=== PATIENT | female | born 1970 | race Caucasian/White ===

== ENCOUNTER 2018-05-03 23:34 | Inpatient (IN) | payer BC ==
[~2018-05-03] VITALS: Ht 167.6 cm; Wt 81.4 kg
[2018-05-04 00:03] LABS: BASOPHILS 0.2 % (0-2); HEMATOCRIT 42.4 % (36.0-48.0); HEMOGLOBIN 13.7 g/dL (12-16); IMMATURE GRANULOCYTES 0.3 % (0-5); LYMPHOCYTES 15.3 % (15-50); MCH 28.4 pg (26.0-34.0); MCHC 32.3 g/dL (31.0-37.0); MCV 87.8 fL (80.0-100.0); MEAN PLATELET VOLUME 9.1 fL (7.4-10.4); NEUTROPHILS 70.2 % (40-80); PLATELET COUNT 397 10x3/uL (130-400); RBC 4.83 10x6/uL (4.00-5.40); RDW 14.5 % (11.5-14.5); WBC 12.7 10x3/uL (4.8-10.8)
[2018-05-04 00:15] LABS: APTT 25.2 SECONDS (22.8-39.4)
[2018-05-04 00:16] LABS: INR 1.01 (0.85-1.17); PROTIME 12.8 SECONDS (11.6-15.0)
[2018-05-04 00:18] LABS: D-DIMER-QUANTITATIVE 0.33 ug/mLFEU (0.20-0.54)
[2018-05-04 00:36] LABS: ALBUMIN 3.7 g/dL (3.4-5.0); ALKALINE PHOSPHATASE 133 U/L (46-116); ALT (SGPT) 19 U/L (10-68); BILIRUBIN - TOTAL 0.52 mg/dL (0.2-1.3); CALC OSMOLALITY 275 mosm/kg (275-300); CALCIUM 8.4 mg/dL (8.5-10.1); CARBON DIOXIDE 21.7 mmol/L (21.0-32.0); CHLORIDE - SERUM 102 mmol/L (98-107); CREATININE - SERUM 0.8 mg/dL (0.6-1.3); GLUCOSE 143 mg/dL (74-106); POTASSIUM - SERUM 3.7 mmol/L (3.5-5.1); PROTEIN - SERUM 7.5 g/dL (6.4-8.2); SODIUM 138 mmol/L (136-145); UREA NITROGEN 8 mg/dL (7-18); eGFR NON AFRICAN AMERICAN 82 mL/min (90-120)
[2018-05-04 00:51] LABS: CKMB 0.3 U/L (0.0-3.6); CREATINE KINASE 45 UL (21-215); PRO BNP 58 pg/mL (0-125); TROPONIN-I < 0.017 ng/mL (0.000-0.060)
--- NOTE | 2018-05-04 01:06 | NUR ---
PT STATES "BREATING BETTER NOW"- OXYGEN IN PLACE AT 2L N/C. SPOUSE AT BEDSIDE. CALL LIGHT WITHIN REACH. WILL MONITOR.
[2018-05-04 03:22] VITALS: BP 161/92; BMI 28.9
--- NOTE | 2018-05-04 03:32 | NUR ---
REPORT CALLED TO THIS NURSE BY BRY ROMERO IN ER. ARRIVED TO FLOOR IN W/C WITH FAMILY AT SIDE. ADMITTED TO ROOM 2124. ALERT AND ORIENTED X4. UP AD MARK. GOOD HISTORIAN. DENIES ANY HOME MEDICATIONS AND STATES SHE'S BEEN HEALTHY ALL HER LIFE. O2@ 2 LITERS PER N/C IN PLACE. IV TO LEFT HAND SL.. DENIES ANY PAIN OR NEEDS AT THIS TIME. ORIENTED TO ROOM, CALL LIGHT AND MEAL TIMES.
[2018-05-04 03:55] VITALS: BP 161/92
--- NOTE | 2018-05-04 07:11 | NUR ---
ASSESSMENT DONE. DENIES NEEDS.
--- NOTE | 2018-05-04 07:59 | NUR ---
I have reviewed this patient and I concur with the Shift Assessment completed by the Licensed Practical Nurse today this shift.
[2018-05-04 09:00] VITALS: BP 125/89
[2018-05-04 10:28] VITALS: Ht 167.6 cm; Wt 81.4 kg
[2018-05-04 12:24] LABS: APPEARANCE CLEAR (CLEAR); BILIRUBIN NEGATIVE (NEGATIVE); COLOR YELLOW (YELLOW); GLUCOSE 1000 mg/dL (NEGATIVE); KETONE SMALL mg/dL (NEGATIVE); NITRITE NEGATIVE (NEGATIVE); PROTEIN NEGATIVE (NEGATIVE); UROBILINOGEN NORMAL (NORMAL)
[2018-05-04 12:37] LABS: UDS - AMPHET NEGATIVE QUAL (NEGATIVE); UDS - BARB NEGATIVE QUAL (NEGATIVE); UDS - BENZO NEGATIVE QUAL (NEGATIVE); UDS - COCAINE NEGATIVE QUAL (NEGATIVE); UDS - OPIATE NEGATIVE QUAL (NEGATIVE); UDS - PCP NEGATIVE QUAL (NEGATIVE); UDS - THC POSITIVE QUAL (NEGATIVE)
[2018-05-04 12:41] VITALS: BP 148/89
[2018-05-04 12:59] LABS: CKMB 0.5 U/L (0.0-3.6); CREATINE KINASE 41 UL (21-215); TROPONIN-I < 0.017 ng/mL (0.000-0.060)
[2018-05-04 16:25] VITALS: BP 144/85
--- NOTE | 2018-05-04 17:44 | NUR ---
WITHOUT CHANGES OR DISTRESS NOTED AT THIS TIME. DENIES NEEDS.
[2018-05-04 17:45] LABS: CKMB 0.5 U/L (0.0-3.6); CREATINE KINASE 39 UL (21-215)
[2018-05-04 17:47] LABS: TROPONIN-I < 0.017 ng/mL (0.000-0.060)
--- NOTE | 2018-05-04 20:02 | NUR ---
RECEIEVED UP IN BED WITH SIGNIFICANT OTHER AT BEDSIDE.T AND ORIENTED X4. DENIES ANY SOB AND DOES NOT HAVE O2 ON. SAT 96% ON ROOM AIR. AZITHROMYCIN STARTED TO LEFT HAND. TELEMETRY IN PLACE. DENIES ANY NEEDS AT THIS TIME.
[2018-05-04 20:26] VITALS: BP 159/93
[2018-05-04 22:49] LABS: CKMB 0.7 U/L (0.0-3.6); CREATINE KINASE 44 UL (21-215); TROPONIN-I < 0.017 ng/mL (0.000-0.060)
[2018-05-05 01:37] VITALS: BP 145/88
[2018-05-05 05:31] VITALS: BP 145/82
[2018-05-05 06:15] LABS: BASOPHILS 0.1 % (0-2); EOSINOPHILS 0.7 % (0-7); HEMATOCRIT 39.4 % (36.0-48.0); HEMOGLOBIN 12.7 g/dL (12-16); IMMATURE GRANULOCYTES 0.2 % (0-5); LYMPHOCYTES 16.7 % (15-50); MCH 28.3 pg (26.0-34.0); MCHC 32.2 g/dL (31.0-37.0); MCV 87.8 fL (80.0-100.0); MEAN PLATELET VOLUME 9.6 fL (7.4-10.4); NEUTROPHILS 74.3 % (40-80); PLATELET COUNT 382 10x3/uL (130-400); RBC 4.49 10x6/uL (4.00-5.40); RDW 15.1 % (11.5-14.5)
[2018-05-05 06:18] LABS: WBC 16.3 10x3/uL (4.8-10.8)
[2018-05-05 06:26] LABS: CALC OSMOLALITY 277 mosm/kg (275-300); CALCIUM 8.4 mg/dL (8.5-10.1); CARBON DIOXIDE 23.5 mmol/L (21.0-32.0); CHLORIDE - SERUM 105 mmol/L (98-107); CREATININE - SERUM 0.7 mg/dL (0.6-1.3); GLUCOSE 103 mg/dL (74-106); POTASSIUM - SERUM 3.7 mmol/L (3.5-5.1); SODIUM 140 mmol/L (136-145); UREA NITROGEN 9 mg/dL (7-18); eGFR NON AFRICAN AMERICAN > 90 mL/min (90-120)
--- NOTE | 2018-05-05 08:00 | NUR ---
WALKING IN HALLWAY. ALERT AND ORIENTED.LEFT HAND SL. TELEMERTY SHOWS SR. DENIES ANY NEEDS. FAMILY AT BEDSIDE.
[2018-05-05 08:23] VITALS: BP 113/60
[2018-05-05 11:52] VITALS: BP 148/107
--- NOTE | 2018-05-05 14:48 | NUR ---
UP IN BED. WANTS TO GO HOME. AWAITING PULLED MONITOR OFF AND STATES SHE DOES NOT WANT TO WEAR IT ANY MORE
[2018-05-05] MEDS ORDERED: FLORAJEN3 CAPS460 MG PO (16:52)
[2018-05-05] MEDS ORDERED: ZITHROMAX500 MG PO (16:52)
--- NOTE | 2018-05-05 16:57 | MORECARE ---
CASE MANAGEMENT DISCHARGE SUMMARY PATIENT: JAROD LECHUGA UNIT: [id number] ADM DATE: 05/04/18 AGE: 47 : 74 SEX: F ROOM/BED: D.6487 AUTHOR: EAMON COX PHYSICIAN: REFERRING PHYSICIAN: KHARI MORENO MD DATE OF SERVICE: 05/05/18 Discharge Plan Patient Name: JAROD LECHUGA Facility: [facility]:[place] : 1970 Planned Disposition: Home Anticipated Discharge Date: 05/05/18 Discharge Date: Expected LOS: 1 Initial Reviewer: [email or web address] Initial Review Date: 05/05/2018 Generated: 05/05/18 5:57 pm Patient Name: JAROD LECHUGA Page [id number] at 1657 All edits/amendments must be made on the electronic document DICTATION DATE: 05/05/181655 CUPOLA OPERATOR INSULATION: FARHANA 05/05/181655 RPT#: [id number] DC DATE: STATUS: ADM IN [facility] [address] [place] [address] END OF REPORT
[2018-05-05 17:17] VITALS: BP 126/71
--- NOTE | 2018-05-05 17:26 | NUR ---
PT DISCHARGEDV DCD WITH TIP INTACT. TO PRIVATE CAR PER WHEEL CHAIR
== END 2018-05-05 17:27 | disposition home or self-care (01) | DRG 202 ==
LOC: D.ER 23:34 → OBSVTIME 05-04 01:50 → D.M2 05-04 01:50
PROVIDERS: Family Medicine; ADMIT Internal Medicine Nephrology; ATTEND Internal Medicine Nephrology
DX: J20.9 Acute bronchitis, unspecified (principal); J44.1 Chronic obstructive pulmonary disease with (acute) exacerbation; J44.0 Chronic obstructive pulmonary disease with (acute) lower respiratory infection; F12.90 Cannabis use, unspecified, uncomplicated